=== PATIENT | female | born 1950 | race Caucasian/White ===

== ENCOUNTER 2017-12-17 07:51 | Emergency (ER) | payer MEDICARE, OTHER ==
[~2017-12-17] VITALS: Ht 162.6 cm; Wt 68.0 kg
[2017-12-17 07:53] VITALS: BP 159/72; PULSE 83; RESP 16; TEMP 98.3; O2SAT 99
[2017-12-17 08:35] LABS: AUTOMATED NEUTROPHIL # 5.5 TH/MM3 (1.8-7.7); BASOPHIL % 0.2 % (0.0-2.0); EOSINOPHIL % 0.6 % (0.0-4.0); HEMATOCRIT 39.2 % (35.0-46.0); HEMOGLOBIN 13.7 GM/DL (11.6-15.3); LYMPH % 21.2 % (9.0-44.0); LYMPHOCYTE # 1.6 TH/MM3 (1.0-4.8); MEAN CELL VOLUME 99.2 FL (80.0-100.0); MEAN CORPUSCULAR HEMOGLOBIN 34.5 PG (27.0-34.0); MEAN CORPUSCULAR HGB CONC 34.8 % (32.0-36.0); MONOCYTE # 0.5 TH/MM3 (0-0.9); PLATELET COUNT 194 TH/MM3 (150-450); RED BLOOD COUNT 3.95 MIL/MM3 (4.00-5.30); RED CELL DISTRIBUTION WIDTH 13.7 % (11.6-17.2); WHITE BLOOD COUNT 7.7 TH/MM3 (4.0-11.0)
--- NOTE | 2017-12-17 09:04 | PD ---
HPI Chief Complaint: Chest Pain Time Seen by Provider: 08:58 Travel History International Travel<30 days: No Contact w/Intl Traveler<30days: No Traveled to known affect area: No History of Present Illness HPI 67-year-old female came to the emergency room with sudden onset epigastric pain radiating to her right upper quadrant and then to the mid back. Patient says this started at 6:30 in the morning and woke her up from sleep. Patient appears to be in significant discomfort. She says she has been nauseous and has been vomiting. Patient is from [place] and here visiting friends. She came with her to the emergency room. She said she has been drinking and partying a lot since she has been here the past couple days. Last night she also ate some ribs. Patient had a similar pain like this about 3 months ago but eventually it went away and she never went to see a doctor. Vital signs are stable. Patient is a smoker. Patient says that laying back makes the pain worse. PFSH Past Medical History Narrative Medical List of her past medical, surgical, social and family history reviewed from the nursing note. Medical History: Denies Significant Hx Diminished Hearing: No Tetanus Vaccination: > 5 Years Influenza Vaccination: Yes ?: Not Menopausal: Yes : 1 Para: 1 Past Surgical History Other Surgery: Yes (cyst removed) Social History Alcohol Use: Yes (ocassionally) Tobacco Use: No (quit 15 years ago) Substance Use: No Allergies-Medications (Allergen,Severity, Reaction): Coded Allergies: Sulfa (Sulfonamide Antibiotics) (Verified Adverse Reaction, Severe, diarrhea, 12/17/17) Comments List of her allergies reviewed from the nursing note. Reported Meds & Prescriptions Reported Meds & Active Scripts Active Zofran Odt (Ondansetron Odt) 4 Mg Tab 4 Mg SL Q6HR PRN Colace (Docusate Sodium) 100 Mg Capsule 100 Mg PO BID Hydrocodone-Acetaminophen 5-325 mg Tab 1 Tab PO Q6H PRN Narrative Medication List of her home medications reviewed from the nursing note. Review of Systems Except as stated in HPI: all other systems reviewed are Neg Gastrointestinal: Positive: Nausea, Vomiting, Abdominal Pain Physical Exam Narrative GENERAL: Awake, alert, anxious, significant SKIN: Focused skin assessment warm/dry. HEAD: Atraumatic. Normocephalic. EYES: Pupils equal and round. No scleral icterus. No injection or drainage. ENT: No nasal bleeding or discharge. Mucous membranes pink and moist. NECK: Trachea midline. No JVD. CARDIOVASCULAR: Regular rate and rhythm. No murmur appreciated. RESPIRATORY: No accessory muscle use. Clear to auscultation. Breath sounds equal bilaterally. GASTROINTESTINAL: Abdomen soft, epigastric and right upper quadrant tenderness, nondistended. Hepatic and splenic margins not palpable. MUSCULOSKELETAL: No obvious deformities. No clubbing. No cyanosis. No edema. NEUROLOGICAL: Awake and alert. No obvious cranial nerve deficits. Motor grossly within normal limits. Normal speech. PSYCHIATRIC: Appropriate mood and affect; insight and judgment normal. Data Data Last Documented VS Orders Orders Electrocardiogram (12/17/17 ) Complete Blood Count With Diff (12/17/17 07:55) Comprehensive Metabolic Panel (12/17/17 07:55) Lipase (12/17/17 07:55) Ckmb (Isoenzyme) Profile (12/17/17 07:55) Troponin I (12/17/17 07:55) Morphine Inj (Morphine Inj) (12/17/17 09:15) Ondansetron Inj (Zofran Inj) (12/17/17 09:15) Sodium Chlor 0.9% 1000 Ml Inj (Ns 1000 M (12/17/17 09:15) Ed Poc Ultrasound (12/17/17 ) Us Abdomen Gallbladder (12/17/17 ) Morphine Inj (Morphine Inj) (12/17/17 10:15) Ed Discharge Order (12/17/17 10:31) Labs Laboratory Tests Test 12/17/17 08:08 White Blood Count 7.7 TH/MM3 Red Blood Count 3.95 MIL/MM3 Hemoglobin 13.7 GM/DL Hematocrit 39.2 % Mean Corpuscular Volume 99.2 FL Mean Corpuscular Hemoglobin 34.5 PG Mean Corpuscular Hemoglobin Concent 34.8 % Red Cell Distribution Width 13.7 % Platelet Count 194 TH/MM3 Mean Platelet Volume 8.0 FL Neutrophils (%) (Auto) 72.0 % Lymphocytes (%) (Auto) 21.2 % Monocytes (%) (Auto) 6.0 % Eosinophils (%) (Auto) 0.6 % Basophils (%) (Auto) 0.2 % Neutrophils # (Auto) 5.5 TH/MM3 Lymphocytes # (Auto) 1.6 TH/MM3 Monocytes # (Auto) 0.5 TH/MM3 Eosinophils # (Auto) 0.0 TH/MM3 Basophils # (Auto) 0.0 TH/MM3 CBC Comment DIFF FINAL Differential Comment Blood Urea Nitrogen 16 MG/DL Creatinine 0.77 MG/DL Random Glucose 120 MG/DL Total Protein 7.7 GM/DL Albumin 4.2 GM/DL Calcium Level 8.7 MG/DL Alkaline Phosphatase 63 U/L Aspartate Amino Transf (AST/SGOT) 29 U/L Alanine Aminotransferase (ALT/SGPT) 35 U/L Total Bilirubin 0.4 MG/DL Sodium Level 141 MEQ/L Potassium Level 3.7 MEQ/L Chloride Level 104 MEQ/L Carbon Dioxide Level 27.7 MEQ/L Anion Gap 9 MEQ/L Estimat Glomerular Filtration Rate 75 ML/MIN Total Creatine Kinase 80 U/L Troponin I LESS THAN 0.02 NG/ML Lipase 284 U/L MDM Medical Decision Making Medical Screen Exam Complete: Yes Emergency Medical Condition: Yes Medical Record Reviewed: Yes Interpretation(s) Twelve-lead EKG was reviewed by me. Normal sinus rhythm, normal axis, low voltage, nonspecific ST-T wave changes. Heart rate of 60 bpm per Differential Diagnosis Biliary colic, acute cholecystitis, ACS, acute pain to type Narrative Course 10:44 AM blood test results are back and within acceptable limits. Based on my bedside ultrasound had ordered a formal to look for gallbladder wall thickness as well as CBD. Those are within normal limits. Patient was given 2 doses of pain medication which has achieved pain control. I will discharge her home. Explained to her the diagnosis and a follow-up with a surgeon once she goes back home. I have asked her to return if conditions worsen. Procedures Procedure Narrative Emergency department right upper quadrant ultrasound was performed with patient consent. Curvilinear probe was used in the transverse and sagittal views within the right upper quadrant revealing gallbladder with multiple stones but without obvious wall thickening, or cholecystic fluid. EKG Prior to Arrival: No Diagnosis Primary Impression: Biliary colic Referrals: Primary Care Physician Additional Instructions: Please follow-up with your primary care physician as soon as you return home. Have a referral to a general surgeon who can remove your gallbladder. Do not eat any fatty food until then. Your diet should mainly consists of white meat, vegetables, fruits and carbohydrates. Do not drink alcohol. Take the pain medication only if needed. Take the additional laxative with that since the pain medication may make you constipated. Return to the ER if condition worsens or any other new concerns. Med/Other Pt SpecificInfo: Prescription(s) given Scripts Ondansetron Odt (Zofran Odt) 4 Mg Tab 4 MG SL Q6HR Y for Nausea/Vomiting, #10 TAB 0 Refills Prov: Kobi Mcbride MD 12/17/17 Docusate Sodium (Colace) 100 Mg Capsule 100 MG PO BID for Prevent Constipation, #20 CAP 0 Refills Prov: Kobi Mcbride MD 12/17/17 Hydrocodone-Acetaminophen (Hydrocodone-Acetaminophen) 5-325 mg Tab 1 TAB PO Q6H Y for PAIN, #15 TAB 0 Refills Prov: Kobi Mcbride MD 12/17/17 Disposition: 01 DISCHARGE HOME Condition: Stable Kobi Mcbride MD Dec 17, 2017 09:04
[2017-12-17] MEDS ORDERED: ONDANSETRON HCL 4 MG/2 ML VIAL IV PUSH ONE (09:15)
[2017-12-17] MEDS ORDERED: MORPHINE SULFATE 4 MG/ML INJ IV PUSH ONE ×2 (09:15→10:15)
[2017-12-17] MEDS ORDERED: SODIUM CHLOR 0.9% 1000 ML INJ 1,000 ML IV ONE (09:15)
[2017-12-17 09:18] LABS: ALBUMIN 4.2 GM/DL (3.4-5.0); ALKALINE PHOSPHATASE 63 U/L (45-117); ALT (GPT) 35 U/L (10-53); AST (GOT) 29 U/L (15-37); BICARBONATE 27.7 MEQ/L (21.0-32.0); BLOOD UREA NITROGEN 16 MG/DL (7-18); CALCIUM 8.7 MG/DL (8.5-10.1); CHLORIDE 104 MEQ/L (98-107); CREATININE 0.77 MG/DL (0.50-1.00); GLOMERULAR FILTRATION RATE 75 ML/MIN (>89); GLUCOSE,RANDOM 120 MG/DL (74-106); SODIUM (NA) 141 MEQ/L (136-145); TOTAL BILIRUBIN ADULT 0.4 MG/DL (0.2-1.0); TOTAL PROTEIN 7.7 GM/DL (6.4-8.2); TROPONIN I LESS THAN 0.02 NG/ML (0.02-0.05)
[2017-12-17 09:56] VITALS: BP 123/60; PULSE 63; RESP 18; O2SAT 99
--- NOTE | 2017-12-17 09:56 | RADRPT ---
EXAM DATE/TIME: 12/17/2017 09:24 [facility] COMPARISON: No previous studies available for comparison. INDICATIONS : Evaluate common bile duct. MEDICAL HISTORY : Chest pain. Vomiting. SURGICAL HISTORY : Right wrist surgery. Cyst removed. ENCOUNTER: Initial ACUITY: 1 day PAIN SCORE: 10/10 LOCATION: Right upper quadrant MEASUREMENTS: LIVER: 17.5 cm length COMMON DUCT: 8 mm RIGHT KIDNEY: 11.3 x 4.8 x 4.1 cm FINDINGS: LIVER: Normal echotexture without focal lesion or ductal dilatation. COMMON DUCT: No intraluminal mass or stone visualized. GALLBLADDER: The gallbladder is well-distended and there are multiple small mobile stones identified within the viktor men. No evidence of wall thickening. PANCREAS: The visualized portions are within normal limits. RIGHT KIDNEY: No evidence of hydronephrosis, stone, or mass. CONCLUSION: Cholelithiasis without evidence of cholecystitis. No stones are identified within the common bile chadwick t. No abnormal dilation of the common bile duct. Cristina Bernal MD on December 17, 2017 at 9:52 Board Certified Radiologist. This report was verified electronically.
[2017-12-17 10:17] VITALS: BP 114/55; PULSE 61; RESP 15; O2SAT 99
[2017-12-17] MEDS ORDERED: COLA100C5 PO (10:34)
[2017-12-17] MEDS ORDERED: HYDR-3516 PO (10:34)
[2017-12-17] MEDS ORDERED: ZOFR4TAB3 SL (10:34)
[2017-12-17 11:01] VITALS: BP 100/52; PULSE 61; RESP 18; O2SAT 95
--- NOTE | 2017-12-17 17:55 | EKG ---
Date Performed: 12/17/2017 Time Performed: 08:00:52 PTAGE: 67 years EKG: Sinus rhythm NORMAL ECG NO PREVIOUS TRACING DOCTOR: Chad Cortes Interpretating Date/Time 12/17/2017 17:55:16
== END 2017-12-17 11:16 | disposition home or self-care (01) ==
LOC: NEPC 07:51
DX: K80.50 Calculus of bile duct without cholangitis or cholecystitis without obstruction (principal); Z87.891 Personal history of nicotine dependence
CPT/HCPCS: 76705; 80053; 82550; 83690; 84484; 85025; 93005; 96374; 96375; 96376; 99284; J2270; J2405; J7030